=== PATIENT | female | born 1955 | race American Indian/Alaskan Native ===

== ENCOUNTER 2019-12-11 08:00 | Outpatient (CLI) | payer MEDICARE, OTHER ==
[~2019-12-11] VITALS: Ht 162.6 cm; Wt 83.9 kg
[2019-12-11] MEDS ORDERED: METF500T20 PO (09:54)
[2019-12-11] MEDS ORDERED: ATOR20TA66 PO (10:05)
[2019-12-11] MEDS ORDERED: LISI-600 PO (10:05)
[2019-12-11] MEDS ORDERED: ALBU18HF2 INH (10:06)
[2019-12-14] MEDS ORDERED: METF-438 PO (11:14)
[2019-12-15] MEDS ORDERED: ringers solution, lacted 1,000 ML IV SCH (05:00)
[2019-12-15] MEDS ORDERED: cefazolin/dext.iso 2gm/100ml 100 ML IV ONE (05:30)
[2019-12-15] MEDS ORDERED: tranexamic acid inj. 840 MG in normal saline 100ml IV soln 100 ML IV ONE (05:30)
[2019-12-15] MEDS ORDERED: vancomycin 1,500 MG in NS 500ml IV soln IV ONE (05:30)
[2019-12-15] MEDS ORDERED: famotidine 20mg tablet PO ONE (05:30)
[2019-12-15] MEDS ORDERED: albuterol 2.5 MG/3 ML nebule NEB ONE (05:30)
[2019-12-16] MEDS ORDERED: ASPI-1 PO (09:18)
== END 2019-12-11 23:59 | disposition home or self-care (01) ==
LOC: PRE-OP 08:00 → EDSTATUS 12-15 09:30
PROVIDERS: ATTEND Orthopaedic Surgery
DX: S42.241P 4-part fracture of surgical neck of right humerus, subsequent encounter for fracture with malunion (principal); Z00.00 Encounter for general adult medical examination without abnormal findings; Z53.21 Procedure and treatment not carried out due to patient leaving prior to being seen by health care provider